=== PATIENT | female | born 2005 | race Caucasian/White ===

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

== ENCOUNTER 2024-02-01 11:28 | Emergency (ER) | payer OTHER, SELFPAY ==
[2024-02-01 11:46] VITALS: BP 116/71; PULSE 81; RESP 16; TEMP 37.3; O2SAT 99
--- NOTE | 2024-02-01 12:01 | ED.SKABFB ---
HPI - Skin/Abscess/Foreign Bdy General Chief complaint: Skin/Abscess/Foreign Body Stated complaint: rash all over body Source: patient Mode of arrival: ambulatory Limitations: no limitations History of Present Illness HPI narrative: 19 y/o female presented for c/o itchy red rash to hips, thighs, and abdomen worsening since 01/24. Started on the abdomen as light red dots, then spread and darkened in color. Using hydrocortisone and calamine cream which provides temporary relief. Endorses new exposures to dogs and detergent x2 months. Denies lip, tongue, or throat swelling, shortness of breath or wheezing. Denies changes to soap, lotion, meds, foods.. No one else in the house or any contacts with similar symptoms. Related Data Home Medications Medication Instructions Recorded Confirmed norelgestromin 150 mcg-e.estradiol patch 02/01/24 35 mcg/24 hr weekly transderm patch (Xulane) Allergies Allergy/AdvReac Type Severity Reaction Status Date / Time No Known Allergies Allergy Verified 04/04/23 14:31 Review of Systems Review of Systems: CONSTITUTIONAL: Denies body aches, fever, chills, or sweats. EYES: Denies visual changes, redness, or discharge. ENT: Denies rhinorrhea, congestion CARDIOVASCULAR: Denies chest pain, palpitations, or edema. RESPIRATORY: Denies cough or dyspnea. GASTROINTESTINAL: Denies abdominal pain, nausea, vomiting, or diarrhea. SKIN: Reports rash MUSCULOSKELETAL: Denies back pain, joint pain, or myalgia. NEUROLOGIC: Denies headache, numbness, tingling, or weakness. PMFSH Comments At time of signature, I have reviewed and agree with nursing past medical, surgical, social and family history unless otherwise noted. Please see nursing chart for further information. There is no relevant family history pertinent to the presenting complaint Exam Narrative: GENERAL: Well-appearing, well-nourished, and in no acute distress. HEAD: Normocephalic, atraumatic. EYES: PERRLA, conjunctivae clear, and EOMI. ENT: Mucous membranes moist. Oropharynx without edema, erythema or lesions. NECK: Supple. No lymphadenopathy CHEST: Clear to auscultation. No respiratory distress. HEART: Regular rate and rhythm. SKIN: Warm, dry. Scattered erythematous irregular round lesions to mid abdomen x3, bilateral medial thighs and lateral hips c/w contact dermatitis. No fluctuance, induration, or drainage. Nontender. NEURO: Alert and oriented x3. PSYCH: Normal mood and affect Course Course Emergency Course: Patient is aware of diagnosis, understands and agrees to treatment plan. Anticipatory guidance given. Patient agrees to follow-up as directed and is aware of reasons to seek care at the emergency department. Portions of this record may have been created with voice recognition software Level of Care: Express Care Visit Vital Signs Vital signs: Vital Signs Temperature 99.2 F 02/01/24 11:46 Pulse Rate 81 02/01/24 11:46 Respiratory Rate 16 02/01/24 11:46 Blood Pressure 116/71 02/01/24 11:46 Pulse Oximetry 99 02/01/24 11:46 Oxygen Delivery Room Air 02/01/24 11:46 Temperature 99.2 F 02/01/24 11:46 Pulse Rate 81 02/01/24 11:46 Respiratory Rate 16 02/01/24 11:46 Blood Pressure 116/71 02/01/24 11:46 Pulse Oximetry 99 02/01/24 11:46 Oxygen Delivery Room Air 02/01/24 11:46 Reviewed MDM - Skin/Abscess/Foreign Bdy MDM Narrative Medical decision making narrative: Discussed physical exam findings most c/w contact dermatitis; reviewed Rx. Advised supportive measures and signs/symptoms to go to the ER. Pt is appropriate for outpt treatment and f/u. Instructed patient to go to nearest ER immediately for any worsening symptoms including but not limited to: fever, spreading rash, pain, sore throat, headache, dizziness, chest pain, trouble breathing, or any symptoms concerning to the patient. Differential Diagnosis Differential diagnosis: Likely abscess of skin or
== END 2024-02-01 12:17 | disposition home or self-care (01) ==
PROVIDERS: Emergency Provider Nurse Practitioner Family
DX: L25.9 Unspecified contact dermatitis, unspecified cause (principal)
CPT/HCPCS: 99213; G0463

== ENCOUNTER 2024-03-22 13:03 | Emergency (ER) | payer OTHER, SELFPAY ==
[2024-03-22 13:07] VITALS: BP 110/63; PULSE 73; RESP 20; TEMP 36.6; O2SAT 100
--- NOTE | 2024-03-22 14:18 | ED.GENADULT ---
HPI - General Adult General Chief complaint: Upper Respiratory Infection Stated complaint: Sore Throat/Runny Nose Source: patient Mode of arrival: ambulatory Limitations: no limitations History of Present Illness HPI narrative: Patient presents for evaluation of sick symptoms for the past four days. Symptoms include hot flashes, chills, sore throat, and productive cough of brown sputum. No nausea, vomiting or diarrhea. 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 Pt has taken some OTC cough and cold medication. She does vape. Related Data Home Medications Medication Instructions Recorded Confirmed norelgestromin 150 mcg-e.estradiol patch 03/22/24 35 mcg/24 hr weekly transderm patch (Xulane) Allergies Allergy/AdvReac Type Severity Reaction Status Date / Time No Known Allergies Allergy Verified 03/22/24 14:27 Review of Systems Review of Systems: CONSTITUTIONAL: Reports hot flashes and chills EYES: Denies visual changes, redness, or discharge. ENT: Reports rhinorrhea and sore throat CARDIOVASCULAR: Denies chest pain, palpitations, or edema. RESPIRATORY: Reports cough. Denies dyspnea. GASTROINTESTINAL: Denies abdominal pain, nausea, vomiting, or diarrhea. GENITOURINARY: Denies dysuria or hematuria. SKIN: Denies rash or itching. MUSCULOSKELETAL: Denies back pain, joint pain, or myalgia. NEUROLOGIC: Denies headache, numbness, dizziness, or weakness. PSYCHIATRIC: Denies anxiety or depression. PMFSH Past Medical History Medical History No pertinent past medical history Surgical History Surgical History No pertinent past surgical history Family History Family History Mother Family history non-contributory Social History Social History Smoking status: Current every day smoker Tobacco type: e-cigarettes/vaping Substance use: current Substance use type: marijuana Gender identity (if verbalized by the patient): Female Spiritual care concerns: No Exam Narrative: GENERAL: Well-appearing, well-nourished, and in no acute distress. HEAD: Normocephalic, atraumatic. EYES: PERRLA and EOMI. ENT: Nares clear, no rhinorrhea or epistaxis. Mucous membranes moist. Oropharynx without tonsillar hypertrophy exudate or other lesions. Bilateral TMs pearly kilgore nonbulging NECK: Supple. No adenopathy or masses. No carotid bruits or JVD CHEST: Clear to auscultation. No respiratory distress. No wheezes rales or rhonchi HEART: Regular rate and rhythm. No murmur heard. Normal peripheral pulses. ABDOMEN: Soft, nontender, nondistended, normal active bowel sounds. EXTREMITIES: Normal range of motion. No edema. SKIN: Warm, dry, no rash. NEURO: No focal deficits. Alert and oriented x3. PSYCH: Normal mood and affect. Course Course Emergency Course: THIS IS A 19-YEAR-OLD FEMALE WHO PRESENTED FOR EVALUATION OF SICK SYMPTOMS. COVID, INFLUENZA, STREP WERE ALL NEGATIVE. EXAM IS CONSISTENT WITH ACUTE VIRAL SYNDROME. INCREASE HYDRATION. [id number] AGENTS FOR SYMPTOM. FOLLOW. GOOD EAR EXAM SYMPTOMS. PATIENT IN AGREEMENT PLAN CARE. Level of Care: Express Care Visit Vital Signs Vital signs: Vital Signs Temperature 36.6 C 03/22/24 13:07 Pulse Rate 73 03/22/24 13:07 Respiratory Rate 20 03/22/24 13:07 Blood Pressure 110/63 03/22/24 13:07 Pulse Oximetry 100 03/22/24 13:07 Oxygen Delivery Room Air 03/22/24 13:07 Temperature 36.6 C 03/22/24 13:07 Pulse Rate 73 03/22/24 13:07 Respiratory Rate 20 03/22/24 13:07 Blood Pressure 110/63 03/22/24 13:07 Pulse Oximetry 100 03/22/24 13:07 Oxygen Delivery Room Air 03/22/24 13:07 Medical Decision Making Vital Signs Vital Signs: Vital Signs Temperature 36.6
[2024-03-22 14:44] LABS: EDINFLUASCREEN Negative; EDINFLUBSCREEN Negative; EDSTREPNEGPOS1 Presumptive Negative
== END 2024-03-22 14:52 | disposition home or self-care (01) ==
PROVIDERS: Emergency Provider Nurse Practitioner
DX: J06.9 Acute upper respiratory infection, unspecified (principal); Z20.822 Contact with and (suspected) exposure to COVID-19; F17.290 Nicotine dependence, other tobacco product, uncomplicated; F12.90 Cannabis use, unspecified, uncomplicated
CPT/HCPCS: 87081; 87426; 87804; 87880; 99213; G0463

== ENCOUNTER 2024-07-06 17:13 | Emergency (ER) | payer OTHER, SELFPAY ==
[2024-07-06 17:15] VITALS: BP 112/69; PULSE 85; RESP 16; TEMP 37.1; O2SAT 98
--- NOTE | 2024-07-06 17:18 | ED.NAVMDI ---
HPI - Nausea/Vomiting/Diarrhea General Chief complaint: Nausea/Vomiting/Diarrhea Stated complaint: nausea/aches Time Seen by Provider: 07/06/24 17:34 Source: patient and RN notes reviewed Mode of arrival: ambulatory Limitations: no limitations History of Present Illness HPI Narrative: 19-year-old female presents with concern of for nausea, vomiting, diarrhea. Reports last night she had several episodes of vomiting and diarrhea. She reports today she has not had any nausea, vomiting, diarrhea. She has some body aches. She denies fever. She denies abdominal pain. She denies dysuria, urgency, frequency. She denies cold symptoms. She uses a control patch in her last period was 3 weeks ago MD elicited complaint: nausea, vomiting and diarrhea Related Data Home Medications Medication Instructions Recorded Confirmed norelgestromin 150 mcg-e.estradiol patch 03/22/24 35 mcg/24 hr weekly transderm patch (Xulane) Allergies Allergy/AdvReac Type Severity Reaction Status Date / Time No Known Allergies Allergy Verified 03/22/24 14:27 Review of Systems Review of Systems: CONSTITUTIONAL: Denies malaise, chills, sweats, or fever. ENT: Denies rhinorrhea, congestion, sinus pain, otalgia or sore throat. CARDIOVASCULAR: Denies chest pain, palpitations, or edema. RESPIRATORY: Denies cough or dyspnea. GASTROINTESTINAL: Denies abdominal pain, nausea, vomiting, diarrhea, bloody, or mucous stools. GENITOURINARY: Denies dysuria or hematuria. MUSCULOSKELETAL: Denies myalgia. NEUROLOGIC: Denies headache. All systems reviewed & are unremarkable except as noted in HPI and below PMFSH Past Medical History Medical History No pertinent past medical history Surgical History Surgical History No pertinent past surgical history Family History Family History Mother Family history non-contributory Social History Social History Smoking status: Current every day smoker Tobacco type: e-cigarettes/vaping Substance use: current Substance use type: marijuana Gender identity (if verbalized by the patient): Female Spiritual care concerns: No Comments At time of signature, agree with nursing past medical, surgical, social and family history. There is no relevant family history pertinent to the presenting complaint Exam Narrative: GENERAL: Well-appearing, well-nourished, and in no acute distress. HEAD: Normocephalic, atraumatic. EYES: PERRLA, conjunctivae clear, and EOMI. ENT: Nares clear, turbinates pink, no rhinorrhea or epistaxis. Mucous membranes moist. Oropharynx without edema, erythema, or lesions. Tonsils not enlarged and without exudate. NECK: Supple. No lymphadenopathy CHEST: Speaks in full sentences. No respiratory distress. HEART: Regular rate and rhythm. ABDOMEN: Soft, flat, nondistended, nontender. No guarding, rebound tenderness, or rigidity. No pulsatile masses. Bowel sounds present in all four quadrants. No organomegaly. Negative Mcmahan?s sign. No periumbilical tenderness. No Supra public tenderness or distension. Good femoral pulses bilaterally. No hernia noted. No scars or surface trauma. SKIN: Warm, dry, no rash. NEURO: Alert and oriented x3. PSYCH: Normal mood and affect Course Course Emergency Course: Patient is aware of diagnosis, understands and agrees to treatment plan. Anticipatory guidance given. Patient agrees to follow-up as directed and is aware of reasons to seek care at the emergency department. Portions of this record may have been created with voice recognition software Level of Care: Express Care Visit Vital Signs Vital signs: Reviewed. MDM - Nausea/Vomiting/Diarrhea MDM Narrative Medical decision making narrative: No evidence of pancreatitis, AAA, cholecystitis, choledocholithiasis, cholangitis, mesenteric ischemia, small bowel obstruction, diverticulitis, colitis, appendicitis, or pelvic etiology such as ovarian/testicular torsion, TOA, or ectopic . Patient has no history of peptic ulcer, H. pylori, chronic aspirin NSAID or corticosteroid use, chronic alcohol use, no history of inflammatory bowel disease, no history of active abdominal infection or malignancy. Patient has no history of hernia or intra-abdominal surgeries, patient denies absence of flatus, constipation, melena, hematemesis. Patient denies post-prandial pain. No pain-out of proportion. Exam findings show no acute concerns or changes; patient is non-toxic appearing and is in no distress. Patient is appropriate for outpatient treatment and follow-up. Critical Care Time Critical Care Time Critical Care Time: No Discharge Plan Discharge Clinical Impression: Nausea vomiting and diarrhea Patient Disposition: Home, Self-Care Condition: Stable Instructions: Acute Nausea and Vomiting (ED), Acute Diarrhea (ED) Additional Instructions: Stay hydrated. Take small sips of fluid containing electrolytes frequently. You should go to the hospital if you experience return of persistent nausea and vomiting that does not resolve and does not allow you to tolerate any food or fluids, persistent fevers for greater than 2-3 more days, increasing abdominal pain that persists despite medications, persistent diarrhea, dizziness, syncope (fainting), or for any other concerns. Prescriptions: No Action norelgestromin-ethin.estradiol [Xulane] 150-35 mcg/24 hr patch weekly Follow-up/Referrals: [facility] [Primary Care Provider] - Stand Alone Forms: Work/School Release IP Time of Disposition: 17:39
== END 2024-07-06 17:47 | disposition home or self-care (01) ==
PROVIDERS: Emergency Provider Nurse Practitioner
DX: R11.2 Nausea with vomiting, unspecified (principal); R19.7 Diarrhea, unspecified; F17.290 Nicotine dependence, other tobacco product, uncomplicated; F12.90 Cannabis use, unspecified, uncomplicated
CPT/HCPCS: 99211; G0463

== ENCOUNTER 2024-07-19 14:26 | Emergency (ER) | payer OTHER, SELFPAY ==
[2024-07-19 14:35] VITALS: BP 110/63; PULSE 84; RESP 18; TEMP 36.8; O2SAT 100
--- NOTE | 2024-07-19 14:52 | ED_ITS ---
HPI - General Adult General Chief complaint: Dental/Oral Stated complaint: tooth pain Source: patient Mode of arrival: ambulatory Limitations: no limitations History of Present Illness HPI narrative: Pt presents for evaluation of left upper dental pain. Symptom onset four days ago. She has a known dental fracture in the affected area. She now reports some mild left-sided maxillary facial swelling. Pain is constant, throbbing, 3/10 in severity. She denies any fever, chills, nausea, vomiting. She is not taking any medication to assist with her symptoms. She is planning on having a fractured tooth extracted but was advised she needed to receive antibiotics prior to that time. She does admit to vaping. Related Data Home Medications Medication Instructions Recorded Confirmed buspirone 7.5 mg tablet 7.5 mg PO BID 07/19/24 07/19/24 norelgestromin 150 mcg-e.estradiol See Rx Instructions .Route .COMPLEX 07/19/24 07/19/24 35 mcg/24 hr weekly transderm patch (Xulane) Allergies Allergy/AdvReac Type Severity Reaction Status Date / Time amoxicillin Allergy Rash Verified 07/19/24 14:41 Penicillins Allergy Rash Verified 07/19/24 14:41 Review of Systems Review of Systems: CONSTITUTIONAL: Denies fever, chills, or sweats. EYES: Denies visual changes, redness, or discharge. ENT: Reports left upper dental pain in left maxillary facial swelling. Denies rhinorrhea, congestion, sore throat, or otalgia. CARDIOVASCULAR: Denies chest pain, palpitations, or edema. RESPIRATORY: Denies cough or dyspnea. GASTROINTESTINAL: Denies abdominal pain, nausea, vomiting, or diarrhea. GENITOURINARY: Denies dysuria or hematuria. SKIN: Denies rash or itching. MUSCULOSKELETAL: Denies back pain, joint pain, or myalgia. NEUROLOGIC: Denies headache, numbness, dizziness, or weakness. PSYCHIATRIC: Denies anxiety or depression. [facility] Past Medical History Medical History No pertinent past medical history Surgical History Surgical History No pertinent past surgical history Family History Family History Mother Family history non-contributory Social History Social History Smoking status: Current every day smoker Tobacco type: e-cigarettes/vaping Substance use: current Substance use type: marijuana Gender identity (if verbalized by the patient): Female Spiritual care concerns: No Exam Narrative: GENERAL: Well-appearing, well-nourished, and in no acute distress. HEAD: Normocephalic, atraumatic. EYES: PERRLA and EOMI. ENT: Nares clear, no rhinorrhea or epistaxis. Mucous membranes moist. Tooth #14 is fractured and eroded down to the gumline. No visible or palpable abscess. Oropharynx without tonsillar hypertrophy exudate or other lesions. Bilateral TMs pearly kilgore nonbulging NECK: Supple. No adenopathy or masses. No carotid bruits or JVD CHEST: Clear to auscultation. No respiratory distress. No wheezes rales or rhonchi HEART: Regular rate and rhythm. No murmur heard. Normal peripheral pulses. ABDOMEN: Soft, nontender, nondistended, normal active bowel sounds. EXTREMITIES: Normal range of motion. No edema. SKIN: Warm, dry, no rash. NEURO: No focal deficits. Alert and oriented x3. PSYCH: Normal mood and affect. Course Course Emergency Course: This is a 19-year-old female who presented for evaluation of left upper dental pain with a known dental fracture. She indicates in the past she is taking clindamycin solution as she has a difficult time swallowing pills. Will send that in for her today. Advise we may need to switch it to capsules in the event that the pharmacy cannot stock the solution. She should follow-up with her dentist go to the emergency department if she has worsening swelling, pain, fevers. Ibuprofen for pain. Patient in agreement with plan of care. Level of Care: Express Care Visit Vital Signs Vital signs: Vital Signs Temperature 36.8 C 07/19/24 14:35 Pulse Rate 84 07/19/24 14:35 Respiratory Rate 18 07/19/24 14:35 Blood Pressure 110/63 07/19/24 14:35 Pulse Oximetry 100 07/19/24 14:35 Temperature 36.8 C 07/19/24 14:35 Pulse Rate 84 07/19/24 14:35 Respiratory Rate 18 07/19/24 14:35 Blood Pressure 110/63 07/19/24 14:35 Pulse Oximetry 100 07/19/24 14:35 Medical Decision Making Vital Signs Vital Signs: Vital Signs Temperature 36.8 C 07/19/24 14:35 Pulse Rate 84 07/19/24 14:35 Respiratory Rate 18 07/19/24 14:35 Blood Pressure 110/63 07/19/24 14:35 Pulse Oximetry 100 07/19/24 14:35 Temperature 36.8 C 07/19/24 14:35 Pulse Rate 84 07/19/24 14:35 Respiratory Rate 18 07/19/24 14:35 Blood Pressure 110/63 07/19/24 14:35 Pulse Oximetry 100 07/19/24 14:35 Discharge Plan Discharge Clinical Impression: Pain, dental, Fracture of tooth Patient Disposition: Home, Self-Care Condition: Stable Instructions: Antibiotic Form, Acute Dental Trauma (ED), Toothache (ED) Patient Language: Gabonese Prescriptions: New clindamycin palmitate HCl 75 mg/5 mL recon soln 300 mg PO Q6H 10 Days Qty: 800 0RF No Action buspirone 7.5 mg tablet 7.5 mg PO BID norelgestromin-ethin.estradiol [Xulane] 150-35 mcg/24 hr patch weekly See Rx Instructions .ROUTE .COMPLEX Rx Instructions: as prescribed Follow-up/Referrals: Kellee Lowery DO [Physician] - Time of Disposition: 14:48
== END 2024-07-19 14:50 | disposition home or self-care (01) ==
PROVIDERS: Emergency Provider Nurse Practitioner
DX: S02.5XXA Fracture of tooth (traumatic), initial encounter for closed fracture (principal); X58.XXXA Exposure to other specified factors, initial encounter; F17.290 Nicotine dependence, other tobacco product, uncomplicated
CPT/HCPCS: 99213; G0463

== ENCOUNTER 2024-08-21 14:56 | Emergency (ER) | payer OTHER, SELFPAY ==
[2024-08-21 15:00] VITALS: BP 115/71; PULSE 80; RESP 18; TEMP 37.1; O2SAT 99
--- NOTE | 2024-08-21 15:40 | ED.DENTAL ---
HPI - Dental/Oral General Chief complaint: Dental/Oral Stated complaint: bump on top of mouth Time Seen by Provider: 08/21/24 15:40 Source: patient, RN notes reviewed and old records reviewed Mode of arrival: ambulatory Limitations: no limitations History of Present Illness HPI Narrative: 19-year-old female presents to the [facility] with concerns of an abscess to the left upper gingiva. Has a decayed tooth in the area. States that she is scheduled for dental with extraction on the 15 of September. Related Data Home Medications ?Medication ?Instructions ?Recorded ?Confirmed ?Last Taken ?Type buspirone 7.5 mg tablet 7.5 mg PO BID 07/19/24 08/21/24 Unknown History norelgestromin 150 mcg-e.estradiol See Rx Instructions .Route .COMPLEX 07/19/24 08/21/24 Unknown History 35 mcg/24 hr weekly transderm patch (Xulane) cephalexin 250 mg/5 mL oral mg 08/21/24 Unknown History suspension Allergies Allergy/AdvReac Type Severity Reaction Status Date / Time amoxicillin Allergy Rash Verified 08/21/24 16:19 Penicillins Allergy Rash Verified 08/21/24 16:19 Review of Systems Review of Systems: All systems reviewed & are unremarkable except as noted in HPI and below Constitutional: Constitutional: Reports no additional constitutional complaints ENT: Reports as per HPI and Reports dental pain Cardiovascular: Cardiovascular: Reports no additional cardiovascular complaints, Denies chest pain and Denies dyspnea Respiratory: Respiratory: Reports no additional respiratory complaints, Denies chest congestion, Denies cough and Denies dyspnea Musculoskeletal: Musculoskeletal: Reports no additional musculoskeletal complaints Integumentary/Breasts: Skin/Breast: Reports system reviewed and no additional complaints, except as docu PMFSH Past Medical History Medical History No pertinent past medical history Surgical History Surgical History No pertinent past surgical history Family History Family History Mother Family history non-contributory Social History Social History Smoking status: Current every day smoker Tobacco type: e-cigarettes/vaping Substance use: current Substance use type: marijuana Gender identity (if verbalized by the patient): Female Spiritual care concerns: No Comments At the time of my signature, I reviewed and agree with the nursing past medical, surgical, social, and family history. There is no relevant family history pertinent to the patient complaint. Exam Const: General: cooperative, healthy appearing, comfortable, no acute distress, well developed, alert and well nourished Nutritional Appearance: well nourished Orientation/consciousness: patient oriented x3 Limitations: no limitations HENMT: Head: normal to inspection Ears: hearing grossly normal bilaterally, external ears normal, TM's normal bilaterally, EAC's normal, mastoids normal and no periauricular adenopathy Face/Nose/Sinus: normal facial exam and face symmetric Face and sinus: normal facial exam and face symmetric Mouth: Yes lip normal and Yes tongue normal Teeth and gingiva: other (Left upper molar, decayed with internal fluctuance, abscess) Eyes: General: appearance normal, both eyes and all related structures Neck: Neck: normal visual inspection, full ROM, no lymphadenopathy and no meningeal signs Chest: Chest palpation & inspection: normal inspection of the chest Resp: Effort & Inspection: normal respiratory effort and able to speak in complete sentences Cardio: Rate: regular rate Skin: General skin exam: normal color and no rashes or lesions noted Neuro: General: patient oriented x3, gait normal, moves all extremities and no meningeal signs Cognition (Neuro): normal cognition Speech: normal speech Gait exam (Neuro): Normal gait present Extrem: General: normal to inspection, full ROM, capillary refill normal and normal gait Psych: Appearance: grossly normal and well kempt Mental Status: mental status grossly normal Speech and movement: Normal speech and movement present and Clear speech present Affect: normal affect Attitude: cooperative Course Course Level of Care: Express Care Visit Vital Signs Vital signs: Vital Signs Temperature 98.7 F 08/21/24 15:00 Pulse Rate 80 08/21/24 15:00 Respiratory Rate 18 08/21/24 15:00 Blood Pressure 115/71 08/21/24 15:00 Pulse Oximetry 99 08/21/24 15:00 Oxygen Delivery Room Air 08/21/24 15:00 Temperature 98.7 F 08/21/24 15:00 Pulse Rate 80 08/21/24 15:00 Respiratory Rate 18 08/21/24 15:00 Blood Pressure 115/71 08/21/24 15:00 Pulse Oximetry 99 08/21/24 15:00 Oxygen Delivery Room Air 08/21/24 15:00 Reviewed MDM - Dental/Oral MDM Narrative Medical decision making narrative: Patient sitting comfortably in exam room. Nontoxic, vitals stable. Patient presents for a abscess in her mouth. Has appointment in middle of September for extraction of 2 Patient appropriate for outpatient treatment and follow-up Discharge instructions reviewed with patient, as well as provided in writing per nursing staff. The instructions also include specific and strict return/GO TO THE ER as well as f/u information. All questions have been answered, and the patient deny any further questions with discharge and discharge plan. Some parts of this dictation were generated by voice recognition software and may contain typographical and/or grammatical inaccuracies. Critical Care Time Critical Care Time Critical Care Time: No Discharge Plan Discharge Clinical Impression: Abscess of upper gingiva Patient Disposition: Home, Self-Care Condition: Stable Instructions: Antibiotic Form, Dental Abscess (ED) Additional Instructions: Finish the entire course of antibiotics & use the mouthwash. After every time you eat be sure to use salt water rinses. While on antibiotics be sure to eat a yogurt a day or take a probiotic Apply ice to face to help with pain. Take Tylenol alternating with Motrin as needed for pain. You can alternate every 4 hours You need to follow-up with a dental provider as soon as possible for further evaluation and treatment. A list of dental providers has been given to you Follow up with a Primary Care Provider (PCP) about medical needs. A PCP can help keep you healthy by preventive medicine and screening. Go to the ER for New or worsening symptoms. Patient Language: Spanish Prescriptions: New clindamycin HCl 300 mg capsule 300 mg PO Q8H 7 Days Qty: 21 0RF clindamycin palmitate HCl 75 mg/5 mL recon soln 300 mg PO TID 7 Days Qty: 420 0RF No Action buspirone 7.5 mg tablet 7.5 mg PO BID norelgestromin-ethin.estradiol [Xulane] 150-35 mcg/24 hr patch weekly See Rx Instructions .ROUTE .COMPLEX Rx Instructions: as prescribed cephalexin 250 mg/5 mL suspension for reconstitution Follow-up/Referrals: PHYSICIAN NOT ON STAFF,NONSTAFF [Primary Care Provider] - Stand Alone Forms: Work/School Release IP Time of Disposition: 15:50
== END 2024-08-21 15:54 | disposition home or self-care (01) ==
PROVIDERS: Emergency Provider Nurse Practitioner
DX: K05.20 Aggressive periodontitis, unspecified (principal); F17.290 Nicotine dependence, other tobacco product, uncomplicated
CPT/HCPCS: 99213; G0463

== ENCOUNTER 2024-11-28 11:59 | Emergency (ER) | payer OTHER, SELFPAY ==
--- OUTSIDE RECORDS SUMMARY | 2024-11-28 12:02 | XMS_ITS | Clinical Summary ---
Author Organization [facility] Address [address] [place] [address] Phone Care Team Providers Care Commercial Tire Service Technician Name Role Phone Christiano Dodson MD Primary Care Provider + Allergies Active Allergy Reactions Criticality Noted Date Comments Penicillins Other (see Comments) 08/16/2024 Medications No known medications Active Problems No known active problems Immunizations Immunization Administration Dates Next Due DTAP VACCINE 2004,2004,2004 DTAP-IPV 03/11/2009 Hepatitis A Vaccine, Pediatric/adolescent, 2 Dose Schedule 03/11/2009 Hepatitis A Vaccine,unspecif ied Formulation 10/06/2007 Hepatitis B Vaccine, Pediatric/adolescent 2004,2004,2004,01/17 Hib Vaccine,unspecified Formulation 2004,0 2004 Human Papillomavirus (HPV) 9 -valent Vaccine 04/10/2018,05/13/2015 Inactivated Polio Vaccine 06/11/2017,2004, 2004 MMR Vaccine 03/11/2009,2005 Meningococcal Vaccine 12/14/2020,05/13/2015 Pneumococcal Vaccine Peds - 7 Valent 2004, 2004,2004 TDAP Vaccine 05/13/2015 Varicella Vaccine Live 03/11/2009,2005 Social History Tobacco Use Types Packs/Day Years Used Date Smoking Tobacco: Never Smokeless Tobacco: Never Tobacco Cessation:Counseling Given: Not Answered Alcohol Use Standard Drinks/Week Comments Never 0 (1 standard drink = 0.6 oz pur e alcohol) Sexually Active Control Partners Comments Never Comments No Sex and Gender Information Value Date Recorded Sex Assigned at Not on file Legal Sex Female 10:28 PM CDT Gender Identity Not on file Sexual Orientation Not on file Last Filed Vital Signs Vital Sign Reading Time Taken Comments Blood Pressure 102/62 08/16/2024 2:28 AM GRANTS ADMINISTRATOR Pulse 77 08/16/2024 2:28 AM GRANTS ADMINISTRATOR Temperature 36.9 C (98.4 F) 08/16/2024 1:18 AM GRANTS ADMINISTRATOR Respiratory Rate 18 08/16/2024 2:28 AM GRANTS ADMINISTRATOR Oxygen Saturation 100% 08/16/2024 2:28 AM GRANTS ADMINISTRATOR Inhaled Oxygen Concentration - - Weight 55.3 kg (122 lb) 08/16/2024 1:18 AM GRANTS ADMINISTRATOR Height 165.1 cm (5' 5 ) 08/16/2024 1:18 AM GRANTS ADMINISTRATOR Body Mass Index 20.3 08/16/2024 1:18 AM GRANTS ADMINISTRATOR Plan of Treatment Health Maintenance Due Date Last Done Comments Hepatitis C Virus (HCV) Screening 2004 Meningococcal B Immunization (1 of 2 - Standard) 2020 Influenza Immunization (#1) 2024 SARS-COV-2 Immunization ( season) 2024 DTaP/Tdap/Td Immunization (6 - Td or Tdap) 05/13/2025 05/13/2015, 03/11/2009, 2004, Additional history exists Respiratory Syncytial Virus (RSV) Immunization (Adult) (1 - 1-dose 75+ series) 01/17/2079 Hepatitis B Immunization Completed 004, 2004, 2004, Additional history exists Pneumococcal Immunization Combined Aged Out 2004, 2004, 2004 No longer eligible based on patient's age to complete this topic TdaP Immunization Discontinued 05/13/2015 Human Papillomavirus (HPV) Immunization Completed 04/10/2018, 05/13/2015 Meningococcal Immunization (ACWY) Completed 12/14/2020, 05/13/2015 Rotavirus Immunization Aged Out No lo nger eligible based on patient's age to complete this topic Insurance MEDICAID [employer] Care Teams Commercial Tire Service Technician Relationship Specialty Start Date End Date Christiano Dodson MD [address] [place] [address] [place] [address] PCP - General Family Medicine 05/04/24
--- OUTSIDE RECORDS SUMMARY | 2024-11-28 12:02 | XMS_ITS | Referral Summary ---
Author Organization [facility] Address [address] [place] [address] Care Team Providers Care Admissions Recruiter Name Role Phone Dalila Gonzaelz MD Primary Care Provider [phone] Allergies No known active allergies Medications No known medications Social History Tobacco Use Types Packs/Day Years Used Date Smoking Tobacco: Never Assessed Tobacco Cessation:Counseling Given: Not Answered Alcohol Use Standard Drinks/Week Comments Yes 0 (1 standard drink = 0.6 oz pur e alcohol) occassional Personal Safety Answer Date Recorded Getting School Help Needed Not on file 11/16 Comments Unknown Sex and Gender Information Value Date Recorded Sex Assigned at Not on file Legal Sex Female 4:13 PM CADET DECK Gender Identity Not on file Sexual Orientation Not on file Last Filed Vital Signs Vital Sign Reading Time Taken Comments Blood Pressure 117/73 10/21/2022 4:07 PM CADET DECK Pulse 101 10/21/2022 4:07 PM CADET DECK Temperature 37.2 C (98.9 F) 10/21/2022 4:07 PM CADET DECK Respiratory Rate 18 10/21/2022 4:07 PM CADET DECK Oxygen Saturation 100% 10/21/2022 4:07 PM CADET DECK Inhaled Oxygen Concentration - - Weight 47.6 kg (105 lb) 10/21/2022 4:07 PM CADET DECK Height 165.1 cm (5' 5 ) 08/15/2022 5:14 PM CADET DECK Body Mass Index 17.47 08/15/2022 5:14 PM CADET DECK Plan of Treatment Not on file Insurance [facility] Care Teams Admissions Recruiter Relationship Specialty Start Date End Date Dalila Gonzalez MD [address] [place] [address] PCP - General Pediatrics 10/21/22
--- OUTSIDE RECORDS SUMMARY | 2024-11-28 12:02 | XMS_ITS | Clinical Summary ---
Author Organization [facility] Address [address] [place] [address] Care Team Providers Care Broadcast Operations Director Name Role Phone Dalila Gonzalez MD Primary Care Provider [phone] Allergies No known active allergies Medications No known medications Surgical History Surgery Date Site/Laterality Comments INDUCED Social History Tobacco Use Types Packs/Day Years [...] on file Legal Sex Female 4:13 PM MECHATRONICS TECHNICIAN Gender Identity Not on file Sexual Orientation Not on file Obstetrics History Last Filed Vital Signs Vital Sign Reading Time Taken Comments Blood Pressure 117/73 10/21/2022 4:07 PM MECHATRONICS TECHNICIAN Pulse 101 10/21/2022 4:07 PM MECHATRONICS TECHNICIAN Temperature 37.2 C (98.9 F) 10/21/2022 4:07 PM MECHATRONICS TECHNICIAN Respiratory Rate 18 10/21/2022 4:07 PM MECHATRONICS TECHNICIAN Oxygen Saturation 100% 10/21/2022 4:07 PM MECHATRONICS TECHNICIAN Inhaled Oxygen Concentration - - Weight 47.6 kg (105 lb) 10/21/2022 4:07 PM MECHATRONICS TECHNICIAN Height 165.1 cm (5' 5 ) 08/15/2022 5:14 PM MECHATRONICS TECHNICIAN Body Mass Index 17.47 08/15/2022 5:14 PM MECHATRONICS TECHNICIAN Plan of Treatment Not on file Insurance [facility] Care Teams Broadcast Operations Director Relationship Specialty Start Date End Date Dalila Gonzalez MD [address] [place] [address] PCP - General Pediatrics 10/21/22
[2024-11-28 12:11] VITALS: BP 112/65; PULSE 71; RESP 16; TEMP 36.6; O2SAT 100
--- NOTE | 2024-11-28 12:26 | ED_ITS ---
HPI - URI/Sore Throat General Chief Complaint: Upper Respiratory Infection Stated Complaint: Sore Throat Time Seen by Provider: 11/28/24 12:16 Source: patient and RN notes reviewed Mode of arrival: ambulatory Limitations: no limitations History of Present Illness HPI Narrative: Patient presents today with a 2 day history of sore throat, body aches, chills, chest congestion. Denies fever, cough, nasal congestion, rhinorrhea. Currently rates her pain 4/10, which increases with swallowing. She has been taking ibuprofen with some mild relief. She has been exposed to influenza Related Data Home Medications ?Medication ?Instructions ?Recorded ?Confirmed ?Last Taken ?Type buspirone 7.5 mg tablet 7.5 mg PO BID 07/19/24 11/28/24 Unknown History norelgestromin 150 mcg-e.estradiol See Rx Instructions .Route .COMPLEX 07/19/24 08/21/24 Unknown History 35 mcg/24 hr weekly transderm patch (Xulane) Allergies Allergy/AdvReac Type Severity Reaction Status Date / Time amoxicillin Allergy Rash Verified 11/28/24 12:03 Penicillins Allergy Rash Verified 11/28/24 12:03 Review of Systems Review of Systems: CONSTITUTIONAL: + body aches, chills EYES: Denies visual changes, redness, or discharge. ENT: Denies rhinorrhea, congestion, or otalgia.+ sore throat CARDIOVASCULAR: Denies chest pain, palpitations, or edema. RESPIRATORY: Denies cough or dyspnea.+ chest congestion GASTROINTESTINAL: Denies abdominal pain, nausea, vomiting, or diarrhea. GENITOURINARY: Denies dysuria or hematuria. SKIN: Denies rash, itching, or wounds. MUSCULOSKELETAL: Denies back pain, joint pain, or myalgia. NEUROLOGIC: Denies headache, numbness, tingling, or weakness. PSYCH: Denies depression or anxiety. [facility] Past Medical History Medical History No pertinent past medical history Surgical History Surgical History No pertinent past surgical history Family History Family History Mother Family history non-contributory Social History Social History Smoking status: Current every day smoker Tobacco type: e-cigarettes/vaping Substance use: current Substance use type: marijuana Gender identity (if verbalized by the patient): Female Spiritual care concerns: No Comments At time of signature, I have reviewed and agree with nursing past medical, surgical, social and family history unless otherwise noted. Please see nursing chart for further information. There is no relevant family history pertinent to the presenting complaint Exam Narrative: GENERAL: Mildly ill-appearing, well-nourished, and in no acute distress. HEAD: Normocephalic, atraumatic. EYES: EOMI. No redness or drainage. Conjunctivae normal. ENT: Mucous membranes pink and moist. Nares clear. No rhinorrhea. TMs normal bilaterally. Throat mildly erythematous without edema or exudate. Uvula midline. NECK: Normal AROM. Supple. No lymphadenopathy. CHEST: No respiratory distress. Clear to auscultation. HEART: Regular rate and rhythm. No murmur appreciated. EXTREMITIES: Normal range of motion. No edema. SKIN: Warm, dry, no rash. Capillary refill normal. Normal skin turgor. NEURO: No focal deficits. Alert and oriented x3. Gait steady. PSYCH: Normal affect. No signs of depression or anxiety. Course Course Level of Care: Express Care Visit Vital Signs Vital signs: Vital Signs Temperature 98 F 11/28/24 12:11 Pulse Rate 71 11/28/24 12:11 Respiratory Rate 16 11/28/24 12:11 Blood Pressure 112/65 11/28/24 12:11 Pulse Oximetry 100 11/28/24 12:11 Oxygen Delivery Room Air 11/28/24 12:11 Temperature 98 F 11/28/24 12:11 Pulse Rate 71 11/28/24 12:11 Respiratory Rate 16 11/28/24 12:11 Blood Pressure 112/65 11/28/24 12:11 Pulse Oximetry 100 11/28/24 12:11 Oxygen Delivery Room Air 11/28/24 12:11 Reviewed MDM - URI/Sore Throat MDM Narrative Medical decision making narrative: Testing negative. Strep culture pending. Symptoms likely viral in etiology. Discussed [id number] medication use and duration of illness. No prescription medications indicated at this time. Anticipatory guidance given. Differential Diagnosis Differential diagnosis: Likely upper respiratory infection, otitis media, viral infection, influenza, pharyngitis and other (Strep throat, COVID) Lab Data Attestation: I reviewed the patient's lab results. Lab results narrative: Rapid strep negative, COVID negative, influenza negative Critical Care Time Critical Care Time Critical Care Time: No Discharge Plan Discharge Clinical Impression: Upper respiratory infection Qualifiers: URI type: unspecified URI Qualified Code(s): J06.9 - Acute upper respiratory infection, unspecified Patient Disposition: Home, Self-Care Condition: Stable Instructions: Upper Respiratory Infection (DC) Additional Instructions: Your COVID-19, influenza, and rapid strep swab was negative today at [facility]. You will be notified in a few days if the culture comes back positive for strep, and appropriate antibiotics will be called in for you at that time. Your symptoms are likely due to a viral illness, which is not treated with antibiotics. Viral symptoms can be present for up to 7-10 days. Take Tylenol or ibuprofen for fever or pain. Rest and stay hydrated. Follow up with your PCP in 7 days if symptoms are not improving. Go to the ER immediately if you have any difficulty breathing or swallowing. Patient Language: Uzbek Prescriptions: No Action buspirone 7.5 mg tablet 7.5 mg PO BID norelgestromin-ethin.estradiol [Xulane] 150-35 mcg/24 hr patch weekly See Rx Instructions .ROUTE .COMPLEX Rx Instructions: as prescribed clindamycin palmitate HCl 75 mg/5 mL recon soln 300 mg PO TID 7 Days Qty: 420 0RF Follow-up/Referrals: PHYSICIAN NOT ON STAFF,NONSTAFF [Primary Care Provider] - Stand Alone Forms: Work/School Release IP Time of Disposition: 12:48
[2024-11-28 12:47] LABS: EDCOVIDSCREEN Negative (Negative); EDINFLUASCREEN Negative (Negative); EDINFLUBSCREEN Negative (Negative); EDSTREPNEGPOS1 Negative (Negative)
== END 2024-11-28 12:58 | disposition home or self-care (01) ==
PROVIDERS: Emergency Provider Nurse Practitioner
DX: J06.9 Acute upper respiratory infection, unspecified (principal); Z20.822 Contact with and (suspected) exposure to COVID-19; F17.290 Nicotine dependence, other tobacco product, uncomplicated; F12.90 Cannabis use, unspecified, uncomplicated
CPT/HCPCS: 87081; 87426; 87804; 87880; 99213; G0463

== ENCOUNTER 2025-02-23 17:29 | Emergency (ER) | payer OTHER, SELFPAY ==
[2025-02-23 17:33] VITALS: BP 120/65; PULSE 83; RESP 20; TEMP 36.6; O2SAT 100
--- NOTE | 2025-02-23 17:33 | ED_ITS ---
HPI - URI/Sore Throat General Chief Complaint: Upper Respiratory Infection Stated Complaint: body aches/sore throat Time Seen by Provider: 02/23/25 17:33 Source: patient Mode of arrival: ambulatory Limitations: no limitations History of Present Illness HPI Narrative: Patient is a 20 year old female who presents to the clinic for body aches, nasal congestion, and a sore throat x 1 day. She states that she been taking ibuprofen [id number] for pain, but has had minimal relief. Denies any shortness of breath, difficulty swallowing, nausea, vomiting or diarrhea. Related Data Home Medications ?Medication ?Instructions ?Recorded ?Confirmed ?Last Taken ?Type norelgestromin 150 mcg-e.estradiol See Rx Instructions .Route .COMPLEX 07/19/24 08/21/24 Unknown History 35 mcg/24 hr weekly transderm patch (Xulane) Allergies Allergy/AdvReac Type Severity Reaction Status Date / Time amoxicillin Allergy Rash Verified 02/23/25 17:42 Penicillins Allergy Rash Verified 02/23/25 17:42 Review of Systems Review of Systems: CONSTITUTIONAL: Reports body aches. Denies fever, chills, or sweats. EYES: Denies visual changes, redness, or discharge. ENT: Reports sore throat and congestion. Denies rhinorrhea or otalgia. CARDIOVASCULAR: Denies chest pain, palpitations, or edema. RESPIRATORY: Denies dyspnea. GASTROINTESTINAL: Denies abdominal pain, nausea, vomiting, or diarrhea. SKIN: Denies rash. NEUROLOGIC: Denies headache All systems reviewed & are unremarkable except as noted in HPI and below PMFSH Past Medical History Medical History No pertinent past medical history Surgical History Surgical History No pertinent past surgical history Family History Family History Mother Family history non-contributory Social History Social History Smoking status: Current every day smoker Tobacco type: e-cigarettes/vaping Substance use: current Substance use type: marijuana Gender identity (if verbalized by the patient): Female Spiritual care concerns: No Comments At time of signature, I have reviewed and agree with nursing past medical, surgical, social and family history unless otherwise noted. Please see nursing chart for further information. There is no relevant family history pertinent to the presenting complaint. Exam Narrative: GENERAL: Mildly Ill-appearing, ?no acute distress. EYES: ?conjunctivae clear ENT: Mucous membranes moist. TMs fluid filled bilaterally, but intact; no tragal tenderness. Oropharynx erythematous without lesions. Tonsils not enlarged and without exudate. No drooling, no hoarseness, no trismus, uvula midline. No tripod positioning, hot potato voice, or soft palate swelling. Nasal congestion noted. NECK: Supple. No lymphadenopathy CHEST: Clear to auscultation, breath sounds equal. ?No respiratory distress, speaks in full sentences. HEART: Regular rate and rhythm. No murmur heard. SKIN: Warm, dry, no rash. NEURO: Alert and oriented x3.? Course Course Level of Care: Express Care Visit Vital Signs Vital signs: Vital Signs Temperature 97.9 F 02/23/25 17:33 Pulse Rate 83 02/23/25 17:33 Respiratory Rate 20 02/23/25 17:33 Blood Pressure 120/65 02/23/25 17:33 Pulse Oximetry 100 02/23/25 17:33 Oxygen Delivery Room Air 02/23/25 17:33 Temperature 97.9 F 02/23/25 17:33 Pulse Rate 83 02/23/25 17:33 Respiratory Rate 20 02/23/25 17:33 Blood Pressure 120/65 02/23/25 17:33 Pulse Oximetry 100 02/23/25 17:33 Oxygen Delivery Room Air 02/23/25 17:33 reviewed. MDM - URI/Sore Throat MDM Narrative Medical decision making narrative: Discussed physical exam findings. Advised supportive measures and signs/symptoms to go to the ER. Pt is appropriate for outpatient treatment and follow up. Differential Diagnosis Differential diagnosis: Likely upper respiratory infection, viral infection, pharyngitis and other (strep throat) Critical Care Time Critical Care Time Critical Care Time: No Discharge Plan Discharge Clinical Impression: Upper respiratory infection Qualifiers: URI type: unspecified URI Qualified Code(s): J06.9 - Acute upper respiratory infection, unspecified Patient Disposition: Home Condition: Stable Instructions: Pharyngitis (ED) Additional Instructions: Rapid strep swab was negative today You will be notified in a few days if the culture comes back positive for strep, and appropriate antibiotics will be called in at that time. if symptoms are due to a viral illness, it is not treated with antibiotics. Viral symptoms can be present for up to 10-14 days. Recommendations: Flonase spray and Zyrtec or Claritin for sinus congestion Tylenol every 8 hours as needed for pain/fever Soft foods, cool liquids, warm tea. Gargle with warm saltwater twice a day. Chloraseptic spray and throat lozenges. Rest and stay hydrated. --Follow up with your PCP --Go to the ER immediately if you cannot swallow your saliva, trouble breathing/wheezing, throat swelling, pain is persistent and severe Patient Language: Dominican Prescriptions: No Action norelgestromin-ethin.estradiol [Xulane] 150-35 mcg/24 hr patch weekly See Rx Instructions .ROUTE .COMPLEX Rx Instructions: as prescribed Follow-up/Referrals: West,Christiano [Other] Stand Alone Forms: Work/School Release IP Time of Disposition: 17:57
[2025-02-23 17:58] LABS: EDSTREPNEGPOS1 Negative (Negative)
== END 2025-02-23 17:57 | disposition home or self-care (01) ==
DX: J06.9 Acute upper respiratory infection, unspecified (principal); F17.290 Nicotine dependence, other tobacco product, uncomplicated; F12.90 Cannabis use, unspecified, uncomplicated
CPT/HCPCS: 87081; 87880; 99213; G0463

== ENCOUNTER 2025-04-13 14:03 | Emergency (ER) | payer OTHER, SELFPAY ==
[2025-04-13 14:07] VITALS: BP 115/53; PULSE 88; RESP 16; TEMP 36.8; O2SAT 99
--- NOTE | 2025-04-13 14:15 | ED.URI ---
HPI - URI/Sore Throat General Chief Complaint: Upper Respiratory Infection Stated Complaint: throat/nose/ache Source: patient and RN notes reviewed Mode of arrival: ambulatory Limitations: no limitations History of Present Illness HPI Narrative: 20 y/o female presented for c/o nasal congestion and sore throat x3 days. States she started with a productive cough of green sputum 2 days ago, and has had intermittent subjective fever, chills, and body aches. Denies n/v/d. Taking Tylenol. MD elicited complaint: cough Related Data Home Medications ?Medication ?Instructions ?Recorded ?Confirmed ?Last Taken ?Type norelgestromin 150 mcg-e.estradiol See Rx Instructions .Route .COMPLEX 07/19/24 08/21/24 Unknown History 35 mcg/24 hr weekly transderm patch (Xulane) Allergies Allergy/AdvReac Type Severity Reaction Status Date / Time Penicillins Allergy Intermediate Vomiting Verified 04/13/25 14:13 amoxicillin Allergy Rash Verified 04/13/25 14:13 Review of Systems Review of Systems: CONSTITUTIONAL: Endorses malaise, body aches, chills, sweats, fever EYES: Denies visual changes, redness, or discharge ENT: Reports rhinorrhea, congestion, sinus pain, sore throat CARDIOVASCULAR: Denies chest pain, palpitations, edema RESPIRATORY: Reports cough, post nasal drainage. Denies dyspnea GASTROINTESTINAL: Denies abdominal pain, nausea, vomiting, diarrhea SKIN: Denies rash NEUROLOGIC: Denies headache PMFSH Past Medical History Medical History No pertinent past medical history Surgical History Surgical History No pertinent past surgical history Family History Family History Mother Family history non-contributory Social History Social History Smoking status: Current every day smoker Tobacco type: e-cigarettes/vaping Substance use: current Substance use type: marijuana Gender identity (if verbalized by the patient): Female Spiritual care concerns: No Exam Narrative: GENERAL: mildly Ill-appearing, nontoxic no acute distress. EYES: conjunctivae clear ENT: Mucous membranes moist. TMs pearly kil[place] with dull light reflex bilaterally; no tragal tenderness. Oropharynx not erythematous without lesions or exudate, no drooling, no hoarseness, no trismus, uvula midline. No tripod positioning, muffled voice, soft palate or pharyngeal wall bulging NECK: Supple. No lymphadenopathy CHEST: Clear to auscultation, breath sounds equal. HEART: Regular rate and rhythm. No murmur heard. SKIN: Warm, dry, no rash. NEURO: Alert and oriented x3. PSYCH: Normal mood and affect Course Course Emergency Course: Patient is aware of diagnosis, understands and agrees to treatment plan. Anticipatory guidance given. Patient agrees to follow-up as directed and is aware of reasons to seek care at the emergency department. Portions of this record may have been created with voice recognition software Level of Care: Express Care Visit Vital Signs Vital signs: Vital Signs Temperature 98.3 F 04/13/25 14:07 Pulse Rate 88 04/13/25 14:07 Respiratory Rate 16 04/13/25 14:07 Blood Pressure 115/53 L 04/13/25 14:07 Pulse Oximetry 99 04/13/25 14:07 Oxygen Delivery Room Air 04/13/25 14:07 Temperature 98.3 F 04/13/25 14:07 Pulse Rate 88 04/13/25 14:07 Respiratory Rate 16 04/13/25 14:07 Blood Pressure 115/53 L 04/13/25 14:07 Pulse Oximetry 99 04/13/25 14:07 Oxygen Delivery Room Air 04/13/25 14:07 reviewed MDM - URI/Sore Throat MDM Narrative Medical decision making narrative: Neg strep covid flu. Discussed physical exam findings. Advised supportive measures and signs/symptoms to go to the ER. Pt is appropriate for outpt treatment and f/u. Differential Diagnosis Differential diagnosis: Likely upper respiratory infection, sinusitis and viral infection Discharge Plan Discharge Clinical Impression: Upper respiratory infection Patient Disposition: Home Condition: Stable Instructions: Antibiotic Form, Upper Respiratory Infection (ED) Additional Instructions: Flu and Covid negative. Rapid strep swab was negative today You will be notified in a few days if the culture comes back positive for strep, and appropriate antibiotics will be called in at that time. if symptoms are due to a viral illness, it is not treated with antibiotics. Viral symptoms can be present for up to 10-14 days. Recommendations: Flonase spray and Zyrtec for sinus congestion Cough syrup may cause drowsiness; avoid driving or take it at night time. Tylenol every 8 hours as needed for pain/fever Soft foods, cool liquids, warm tea. Gargle with warm saltwater twice a day. Chloraseptic spray and throat lozenges. Rest and stay hydrated. --Follow up with your PCP --Go to the ER immediately if you cannot swallow your saliva, trouble breathing/wheezing, throat swelling, pain is persistent and severe Patient Language: Greek Prescriptions: No Action norelgestromin-ethin.estradiol [Xulane] 150-35 mcg/24 hr patch weekly See Rx Instructions .ROUTE .COMPLEX Rx Instructions: as prescribed Follow-up/Referrals: PHYSICIAN,MASTER LAY OUT SPECIALIST [Primary Care Provider] - Stand Alone Forms: Work/School Release IP Time of Disposition: 14:44
[2025-04-13 14:23] LABS: EDSTREPNEGPOS1 Negative (Negative)
--- OUTSIDE RECORDS SUMMARY | 2025-04-13 14:29 | XMS_ITS | Clinical Summary ---
Author Organization [facility] Address [address] [place] [address] Care Team Providers Care Motion Graphics Designer Name Role Phone Christiano Dodson MD Primary Care Provider + Allergies No known active allergies Medications No [...] on file Legal Sex Female 4:13 PM EARLY EDUCATION TEACHER Gender Identity Not on file Sexual Orientation Not on file Obstetrics History Last Filed Vital Signs Vital Sign Reading Time Taken Comments Blood Pressure 117/73 10/21/2022 4:07 PM EARLY EDUCATION TEACHER Pulse 101 10/21/2022 4:07 PM EARLY EDUCATION TEACHER Temperature 37.2 C (98.9 F) 10/21/2022 4:07 PM EARLY EDUCATION TEACHER Respiratory Rate 18 10/21/2022 4:07 PM EARLY EDUCATION TEACHER Oxygen Saturation 100% 10/21/2022 4:07 PM EARLY EDUCATION TEACHER Inhaled Oxygen Concentration - - Weight 47.6 kg (105 lb) 10/21/2022 4:07 PM EARLY EDUCATION TEACHER Height 165.1 cm (5' 5) 08/15/2022 5:14 PM EARLY EDUCATION TEACHER Body Mass Index 17.47 08/15/2022 5:14 PM EARLY EDUCATION TEACHER Plan of Treatment Not on file Insurance [facility] Care Teams Motion Graphics Designer Relationship Specialty Start Date End Date Christiano Dodson MD [address] [place] [address] [place] [address] PCP - General Family Medicine 12/22/24
--- OUTSIDE RECORDS SUMMARY | 2025-04-13 14:29 | XMS_ITS | Clinical Summary ---
Author Organization [facility] Address [address] [place] [address] Phone Care Team Providers Care Senior Sales Engineer Name Role Phone Christiano Dodson MD Primary [...] Comments Blood Pressure 102/62 08/16/2024 2:28 AM HOG CONFINEMENT SYSTEM MANAGER Pulse 77 08/16/2024 2:28 AM HOG CONFINEMENT SYSTEM MANAGER Temperature 36.9 C (98.4 F) 08/16/2024 1:18 AM HOG CONFINEMENT SYSTEM MANAGER Respiratory Rate 18 08/16/2024 2:28 AM HOG CONFINEMENT SYSTEM MANAGER Oxygen Saturation 100% 08/16/2024 2:28 AM HOG CONFINEMENT SYSTEM MANAGER Inhaled Oxygen Concentration - - Weight 55.3 kg (122 lb) 08/16/2024 1:18 AM HOG CONFINEMENT SYSTEM MANAGER Height 165.1 cm (5' 5) 08/16/2024 1:18 AM HOG CONFINEMENT SYSTEM MANAGER Body Mass Index 20.3 08/16/2024 1:18 AM HOG CONFINEMENT SYSTEM MANAGER Plan of Treatment Health Maintenance Due Date Last Done Comments Hepatitis C Virus (HCV) Screening 2004 Meningococcal B Immunization (1 of 2 - Standard) 2020 SARS-COV-2 Immunization ( - season) 2024 Pap Smear 01/17/2025 Influenza Immunization (#1) 2025 DTaP/Tdap/Td Immunization (6 - Td or Tdap) [...] Insurance MEDICAID [facility] Care Teams Senior Sales Engineer Relationship Specialty Start Date End Date Christiano Dodson MD [address] [place] [address] [address] [place] [id number] PCP - General Family Medicine 05/04/24
[2025-04-13 14:49] LABS: EDCOVIDSCREEN Negative (Negative); EDINFLUASCREEN Negative (Negative); EDINFLUBSCREEN Negative (Negative)
== END 2025-04-13 14:48 | disposition home or self-care (01) ==
PROVIDERS: Emergency Provider Nurse Practitioner Family
DX: J06.9 Acute upper respiratory infection, unspecified (principal); F17.290 Nicotine dependence, other tobacco product, uncomplicated; Z20.822 Contact with and (suspected) exposure to COVID-19
CPT/HCPCS: 87081; 87426; 87804; 87880; 99213; G0463

== ENCOUNTER 2025-06-12 17:48 | Emergency (ER) | payer OTHER, SELFPAY ==
--- NOTE | 2025-06-12 17:50 | ED.FEMALEGU ---
HPI - Female Genitourinary General Chief complaint: Urogenital-Female Stated complaint: Vaginal Issue Time Seen by Provider: 06/12/25 17:50 Source: patient and family Mode of arrival: ambulatory Limitations: no limitations History of Present Illness HPI Narrative: Susi is a 20-year-old female patient presenting to the clinic today with complaints of white vaginal discharge and vaginal itching times 4 days. Denies any vaginal odor. No recent antibiotic use. No changes in soaps, shampoos, or detergents. She reports no urinary symptoms. Last menstrual period was 3 weeks ago. She is sexual active with multiple partners (Men/Women). Has had 3 new sexual partners since this summer. Does not use condoms. Does use a control patch. No back pain for, fevers, chills, body aches. Related Data Home Medications ?Medication ?Instructions ?Recorded ?Confirmed ?Last Taken ?Type norelgestromin 150 mcg-e.estradiol See Rx Instructions .Route .COMPLEX 07/19/24 08/21/24 Unknown History 35 mcg/24 hr weekly transderm patch (Xulane) Allergies Allergy/AdvReac Type Severity Reaction Status Date / Time Penicillins Allergy Intermediate Vomiting Verified 06/12/25 17:57 amoxicillin Allergy Rash Verified 06/12/25 17:57 Review of Systems Review of Systems: Pertinent positives per HPI. Patient denies any fever, chills, rash, headache, visual changes, dizziness, cough, runny nose, sore throat, shortness of breath, chest pain, palpitations, nausea, vomiting, diarrhea, constipation, abdominal pain, or any urinary issues. [facility] Past Medical History Medical History No pertinent past medical history Surgical History Surgical History No pertinent past surgical history Family History Family History Mother Family history non-contributory Social History Social History Smoking status: Current every day smoker Tobacco type: e-cigarettes/vaping Substance use: current Substance use type: marijuana Gender identity (if verbalized by the patient): Female Spiritual care concerns: No Comments At the time of my signature, I reviewed and agree with the nursing past medical, surgical, social, and family history. There is no relevant family history pertinent to the patient complaint. Exam Narrative: General: Well-developed, well nourished, in no apparent distress. Head: Normocephalic, atraumatic. Cardio: Regular rate and rhythm, s1 and s2 normal, no murmur appreciated. Resp: Clear to auscultation bilaterally, no rhonchi, rales, wheezing or rubs. Abdomen: Soft, pliable, bowel sounds present in all quadrants, mild suprapubic tender to palpation, no organomegly, no CVAT tenderness. : Deferred-patient self swab Course Course Emergency Course: Portions of this record may have been created with voice recognition software. Level of Care: Express Care Visit Vital Signs Vital signs: Vital Signs Temperature 36.7 C 06/12/25 17:58 Pulse Rate 102 H 06/12/25 17:58 Respiratory Rate 18 06/12/25 17:58 Blood Pressure 112/63 06/12/25 17:58 Pulse Oximetry 100 06/12/25 17:58 Oxygen Delivery Room Air 06/12/25 17:58 Temperature 36.7 C 06/12/25 17:58 Pulse Rate 102 H 06/12/25 17:58 Respiratory Rate 18 06/12/25 17:58 Blood Pressure 112/63 06/12/25 17:58 Pulse Oximetry 100 06/12/25 17:58 Oxygen Delivery Room Air 06/12/25 17:58 Vital signs reviewed MDM - Female Genitourinary MDM Narrative Medical decision making narrative: At the time of visit patient is resting comfortably on the exam table. Patient appears to be nontoxic. Complaints of white vaginal discharge and vaginal itching times 4 days. Denies any vaginal odor. No recent antibiotic use. No changes in soaps, shampoos, or detergents. She reports no urinary symptoms. Last menstrual period was 3 weeks ago. She is sexual active with multiple partners (Men/Women). Has had 3 new sexual partners since this summer. Does not use condoms. Does use a control patch. No back pain for, fevers, chills, body aches. Labs: Urine dip shows 2+ leukocytes. We will send urine for culture, bedside test negative, chlamydia, gonorrhea, Trichomonas, BV, and genital culture was ordered Plan: I suspect patient has vaginal itching with discharge. Prescription for Diflucan was sent to the pharmacy. Will wait for other lab results prior to treatment. Supportive measures were discussed with the patient and they voiced understanding discharge instructions and agrees to treatment plan. Return precautions reviewed Differential Diagnosis Differential diagnosis: Likely urinary tract infection, bacterial vaginosis, trichomoniasis, cervicitis, vaginitis, cystitis and other (STIs) Discharge Plan Discharge Clinical Impression: Vaginal discharge High risk sexual behavior Qualifiers: High risk sexual behavior type: bisexual Qualified Code(s): Z72.53 - High risk bisexual behavior Patient Disposition: Home Condition: Stable Instructions: Antibiotic Form, Vaginal Discharge (ED) Additional Instructions: Urine dip shows 2+ leukocytes. We will send urine for culture Bedside test was negative in the clinic today We will send testing for gonorrhea, chlamydia, Trichomonas, bacterial vaginosis, and genital culture to the lab Take Diflucan as prescribed We have tested you for STIs in the clinic today. Avoid any sexual activity- includes oral, anal, or vaginal intercourse until you get results back and have completed any additional recommended treatment regimens. We will contact you if testing is positive and make sure your treatment was appropriate for the type of STI. If symptoms worsen after treatment recommend reevaluation with your PCP, OBGYN, or STI clinic Patient Language: [place]al[place] Prescriptions: New fluconazole 150 mg tablet 150 mg PO ONCE Qty: 2 0RF Rx Instructions: as a single dose. May repeat in 72 hours if needed. No Action norelgestromin-ethin.estradiol [Xulane] 150-35 mcg/24 hr patch weekly See Rx Instructions .ROUTE .COMPLEX Rx Instructions: as prescribed Follow-up/Referrals: UNKNOWN,DOCTOR [Non-Staff] Time of Disposition: 18:20 Quality NIHSS Nursing Documentation ED NIHSS nursing documentation: reviewed/agree
--- OUTSIDE RECORDS SUMMARY | 2025-06-12 17:50 | XMS_ITS | Clinical Summary ---
Author Organization [facility] Address [address] [place] [address] Care Team Providers Care Infant Toddler Lead Teacher Name Role Phone Christiano Dodson MD Primary [...] on file Legal Sex Female 4:13 PM CARDIAC TECHNOLOGIST Gender Identity Not on file Sexual Orientation Not on file Obstetrics History Last Filed Vital Signs Vital Sign Reading Time Taken Comments Blood Pressure 117/73 10/21/2022 4:07 PM CARDIAC TECHNOLOGIST Pulse 101 10/21/2022 4:07 PM CARDIAC TECHNOLOGIST Temperature 37.2 C (98.9 F) 10/21/2022 4:07 PM CARDIAC TECHNOLOGIST Respiratory Rate 18 10/21/2022 4:07 PM CARDIAC TECHNOLOGIST Oxygen Saturation 100% 10/21/2022 4:07 PM CARDIAC TECHNOLOGIST Inhaled Oxygen Concentration - - Weight 47.6 kg (105 lb) 10/21/2022 4:07 PM CARDIAC TECHNOLOGIST Height 165.1 cm (5' 5) 08/15/2022 5:14 PM CARDIAC TECHNOLOGIST Body Mass Index 17.47 08/15/2022 5:14 PM CARDIAC TECHNOLOGIST Plan of Treatment Not on file Insurance [facility] Care Teams Infant Toddler Lead Teacher Relationship Specialty Start Date End Date Christiano Dodson MD [address] [place] [address] [place] [address] PCP - General Family Medicine 12/22/24
--- OUTSIDE RECORDS SUMMARY | 2025-06-12 17:52 | XMS_ITS | Clinical Summary ---
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 Pulse 77 08/16/2024 2:28 AM HOUSE PAINTING INSTRUCTOR Temperature 36.9 C (98.4 F) 08/16/2024 1:18 AM HOUSE PAINTING INSTRUCTOR Respiratory Rate 18 08/16/2024 2:28 AM HOUSE PAINTING INSTRUCTOR Oxygen Saturation 100% 08/16/2024 2:28 AM HOUSE PAINTING INSTRUCTOR Inhaled Oxygen Concentration - - Weight 55.3 kg (122 lb) 08/16/2024 1:18 AM HOUSE PAINTING INSTRUCTOR Height 165.1 cm (5' 5) 08/16/2024 1:18 AM HOUSE PAINTING INSTRUCTOR Body Mass Index 20.3 08/16/2024 1:18 AM HOUSE PAINTING INSTRUCTOR Plan of Treatment Health Maintenance Due Date Last Done Comments Hepatitis C Virus (HCV) Screening 2004 Meningococcal B Immunization (1 of 2 - Standard) 2020 Pap Smear 01/17/2025 Influenza Immunization (#1) 2025 SARS-COV-2 Immunization ( season) 2025 DTaP/Tdap/Td Immunization (6 - Td or [...] Insurance MEDICAID [employer] Care Teams Retail Security Professional Relationship Specialty Start Date End Date Christiano Dodson MD [address] [place] [address] [address] MCNALLY [address] [place] [phone] PCP - General Family Medicine 05/04/24
[2025-06-12 17:58] VITALS: BP 112/63; PULSE 102; RESP 18; TEMP 36.7; O2SAT 100
[2025-06-12 18:23] LABS: BEDSIDEPREGUCG Negative (Negative); EDUAAPPEAR Clear; EDUABILI Negative (Negative); EDUABLOOD Negative (Negative); EDUACOLOR1 Yellow; EDUAGLUCOSE Negative (Negative); EDUAKETONE Negative (Negative); EDUALEUKO 2+ (Negative); EDUANITRATE Negative (Negative); EDUAPH 7.5; EDUAPROTEIN Negative (Negative); EDUASPGRAVITY 1.020; EDUAUROBILI 0.2
[2025-06-13 19:02] LABS: Trichomonas Vag PCR NOT DETECTED (NOT DETECTE)
== END 2025-06-12 18:33 | disposition home or self-care (01) ==
PROVIDERS: Emergency Provider Nurse Practitioner Family
DX: N89.8 Other specified noninflammatory disorders of vagina (principal); Z72.53 High risk bisexual behavior; F17.290 Nicotine dependence, other tobacco product, uncomplicated; F12.90 Cannabis use, unspecified, uncomplicated
CPT/HCPCS: 81003; 81025; 87070; 87086; 87491; 87591; 87661; 87798; 99213; G0463